=== PATIENT | male | born 1990 | race Caucasian/White ===

== ENCOUNTER 2019-06-23 00:55 | Emergency (ER) | payer OTHER ==
[~2019-06-23] VITALS: Ht 162.6 cm; Wt 86.2 kg
--- NOTE | 2019-06-23 01:07 | NUR ---
Dr. Cervantes on bedside for MSE.
--- NOTE | 2019-06-23 01:07 | NUR ---
Pt arrived at the ER with c/o severe upper back pain x 6 hours. Pt was driving 4.5 hours from [place]. Pt was working out lifting weights in [place].
[2019-06-23] MEDS ORDERED: HYDROMORPHONE 1 MG/1 ML DISP.SYRIN IM ONE (01:15)
[2019-06-23] MEDS ORDERED: ONDANSETRON 4 MG/2 ML VIAL IM ONE (01:15)
[2019-06-23] MEDS ORDERED: HYDROMORPHONE 1 MG/1 ML DISP.SYRIN ONE (01:17)
[2019-06-23] MEDS ORDERED: ONDANSETRON 4 MG/2 ML VIAL ONE (01:18)
--- NOTE | 2019-06-23 01:23 | NUR ---
Called cryptological technician for x-ray.
--- NOTE | 2019-06-23 01:25 | NUR ---
Ice pack applied on upper back.
--- NOTE | 2019-06-23 01:49 | NUR ---
Dr. Cervantes on bedside.
[2019-06-23] MEDS ORDERED: IBUPROFEN 800 MG TABLET ONE (01:56)
[2019-06-23] MEDS ORDERED: IBUPROFEN 800 MG TABLET PO ONE (02:00)
--- NOTE | 2019-06-23 02:29 | NUR ---
Dr. Cervantes on bedside.
--- NOTE | 2019-06-23 02:34 | NUR ---
Patient discharged to home in stable conditon. Written and verbal after care instructions given. Patient verbalizes understanding of instructions. Pt ambulated out of the ER with steady gait. All belongings with pt.
[2019-06-23 02:38] VITALS: BP 106/69
== END 2019-06-23 02:34 | disposition home or self-care (01) ==
LOC: ER 00:59
DX: M54.6 Pain in thoracic spine (principal); F17.200 Nicotine dependence, unspecified, uncomplicated; F12.10 Cannabis abuse, uncomplicated
CPT/HCPCS: 71045; 96372 ×2; 99283; J1170; J2405; A4663